=== PATIENT | female | born 1955 | race Two or more races ===

== ENCOUNTER 2023-03-10 05:46 | Day surgery (SDC) | payer OTHER ==
[~2023-03-10 05:46] MED LIST: CRESTOR20 MG PO; ECOTRIN81 MG PO; FOSAMAX70 MG PO; HYMOVIS24 MG/3 ML IU; SYNTHROID50 MCG PO; VOLTAREN-XR100 MG PO; VOLTAREN100 GM TD
[2023-03-10 07:26] LABS: INR 0.98; PARTIAL THROMBOPLASTIN TIME 27.3 SECONDS (22.0-34.0); PROTHROMBIN TIME 10.3 SECONDS (9.0-11.5)
== END 2023-03-10 17:40 | disposition home or self-care (01) ==
LOC: CIR.AMB 05:46
PROVIDERS: ATTEND Surgery
DX: D21.6 Benign neoplasm of connective and other soft tissue of trunk, unspecified (principal); R22.2 Localized swelling, mass and lump, trunk; Z20.822 Contact with and (suspected) exposure to COVID-19; I10 Essential (primary) hypertension; E78.5 Hyperlipidemia, unspecified